=== PATIENT | male | born 1965 | race Caucasian/White ===

== ENCOUNTER 2020-08-27 20:24 | Observation (INO) ==
[2020-08-27 21:04] LABS: Urine Bilirubin Negative (NEGATIVE); Urine Blood 250 /ul (NEGATIVE); Urine Ketone Negative (NEGATIVE); Urine Nitrite Negative (NEGATIVE); Urine Protein Negative (NEGATIVE); Urine Specific Gravity 1.015 SP.GR. (1.005-1.030); Urine Urobilinogen Normal (NORMAL); Urine pH 6.5 pH (5.0-7.0)
[2020-08-27 21:22] LABS: Hematocrit 41.1 % (42.0-52.0); Hemoglobin 13.9 gm/dL (13.5-18.0); Mean Cell Volume 87.4 fl (78-100); Mean Corpuscular Hemoglobin 29.6 pg (27-31); Mean Corpuscular Hgb Conc 33.8 g/dl (32-36); Mean Platelet Volume 9.7 fl (8-11.3); Neutrophil # 7.7 K/mm3 (1.3-6.0); Neutrophil % 76.6 % (42-75.0); Platelet Count 232 K/mm3 (150-450); Red Cell Distribution Width 11.7 % (11.5-14.0); White Blood Count 10.1 K/mm3 (4.0-10.5)
--- NOTE | 2020-08-27 21:27 | ERNOTE ---
<Pilar Fields - Last Filed: 08/27/20 21:27> Abdominal HPI - Narrative Date of Service: 08/27/20 - General Chief Complaint: Abdominal Pain Time Seen by Provider: 08/27/20 21:05 Source: patient Exam Limitations: no limitations - Immun/Allergies/Home Medications Immunizatons: IMMUNIZATION HX Immunizations Up to Date Yes History of Influenza Vaccine No Hx Pneumococcal Vaccination No Allergies/Adverse Reactions: Allergies No Known Allergies Allergy (Unverified 08/27/20 20:55) Home Medications: HOME MEDICATIONS NK 08/27/20 [Last Taken Unknown] - Pain Score Pain Score #1 Pain Score: 5 Abdominal Pain Onset Location: RLQ Pain Radiation: flank - History of Present Illness Narrative: The patient is a 55 year old male who presents via POV for RLQ and flank pain which has been present since Thursday. There are associated symptoms of nausea and emesis x2 events. The patient reports pain to RLQ and flank, 5/10. There are no alleviating factors. There are aggravating factors of oral intake and activity. Previous treatments have included: none. The past medical history includes: kidney stones. The social history is negative. The patient has had no known ill contacts. Patient states he developed RLQ pain with radiation to right flank Thursday night with emesis on Thursday and again today. Patient reports normal bowel movement this am. Patient states pain has been intermittent since onset with varying levels of severity. Review of Systems - Review of Systems Constitutional: Present: chills, fatigue. Absent: fever EYE: Present: no symptoms reported ENT: Present: no symptoms reported. Absent: ear pain, nasal drainage, sore throat Respiratory: Present: no symptoms reported. Absent: shortness of breath, cough Cardiology: Present: no symptoms reported. Absent: chest pain Gastrointestinal/Abdominal: Present: nausea, vomiting, abdominal pain. Absent: diarrhea Genitourinary: Present: frequency. Absent: dysuria, decreased urinary output Musculoskeletal: Present: back pain Skin: Present: no symptoms reported. Absent: rash Neurological: Present: no symptoms reported. Absent: headache, dizziness/light- headedness Medical History (Last Reviewed 08/27/20 @ 21:21 by KARTHIK Mcdermott) No pertinent past medical history Surgical History: Surgical History (Last Reviewed 08/27/20 @ 21:21 by KARTHIK Mcdermott) No history of previous surgery Family History: Family History (Last Reviewed 08/27/20 @ 21:21 by KARTHIK Mcdermott) Other Family history non-contributory Physical Exam - Physical Exam General Appearance: Present: wd/wn, alert, mild distress Head Exam: Present: normal inspection, no evidence of injury Eye Exam: Normal inspection: bilateral Neck: Present: normal inspection Respiratory: Present: no respiratory distress, normal breath sounds, no accessor y muscle use, lungs clear Cardiovascular/Chest: Present: regular rate, rhythm, no murmur Gastrointestinal/Abdominal: Present: normal bowel sounds, nondistended, soft, no organomegaly, tenderness - RLQ, rebound. Absent: guarding Back Exam: Present: CVA tenderness (R). Absent: CVA tenderness (L) Extremity Exam: Present: no edema Neurological Exam: Present: alert, oriented, normal mood/affect, no motor/sensory deficits Skin Exam: Present: normal color, warm/dry Progress - Vital Signs Patient's Vital Signs:: I have reviewed the patient's vital signs. Vital Signs: Vital Signs 08/27/20 20:45 Temperature 37.0 C Pulse Rate 53 L Respiratory Rate 18 Blood Pressure 191/94 H O2 Sat by Pulse Oximetry 98 - Progress/Reassessment Chief Complaint: Abdominal Pain - Transfer of Care Physician Sign Out: Pilar Fields Receiving Physician: Francois Vidal Pending Results: CT/MRI results, Labs Expected Disposition: Discharge Departure Clinical Impression: Kidney stone on right side Pancreatitis Qualifiers: Chronicity: acute Pancreatitis type: idiopathic Acute pancreatitis complication: no infection or necrosis Qualified Code(s): K85.00 - Idiopathic acute pancreatitis without necrosis or infection - Departure Disposition: Home self-care Condition: Fair <Francois Vidal - Last Filed: 08/28/20 05:20> Abdominal HPI - Immun/Allergies/Home Medications Immunizatons: IMMUNIZATION HX Immunizations Up to Date Yes History of Influenza Vaccine No Hx Pneumococcal Vaccination No Medical History (Last Reviewed 08/27/20 @ 23:00 by Francois Vidal DO) No pertinent past medical history Surgical History: Surgical History (Last Reviewed 08/27/20 @ 23:00 by Francois Vidal DO) No history of previous surgery Family History: Family History (Last Reviewed 08/27/20 @ 23:00 by Francois Vidal DO) Other Family history non-contributory Physical Exam - Physical Exam General Appearance: Present: wd/wn, alert, no apparent distress Head Exam: Present: normal inspection, no evidence of injury Neck: Present: normal inspection, full range of motion Respiratory: Present: no respiratory distress, no accessory muscle use Gastrointestinal/Abdominal: Present: nondistended, soft, tenderness - Right lower quadrant. No epigastric or right upper quadrant tenderness to deep palpation. Absent: guarding, rebound Back Exam: Present: CVA tenderness (R) Extremity Exam: Present: no edema Neurological Exam: Present: alert, oriented, normal mood/affect, no motor/sensory deficits Skin Exam: Present: normal color, warm/dry Progress - Results and Orders Patient's Lab Results:: I have reviewed the patient's lab results. Results and Orders: Laboratory Tests 08/27/20 08/27/20 08/27/20 20:53 21:20 21:20 WBC 10.1 Hgb 13.9 Hct 41.1 L Plt Count 232 Neutrophils % 76.6 H Sodium 137 Potassium 3.8 Chloride 101 BUN 16 Creatinine 1.77 H Calcium 8.5 Total Bilirubin 0.8 AST 19 ALT 34 C-Reactive Prot, Quant 2.8 H Triglycerides Amylase 307 H Lipase 1162 H Urine Color Yellow Urine Appearance Clear Urine pH 6.5 Ur Specific [place] 1.015 Urine Ketones Negative Urine Blood 250 H Urine Nitrate Negative Ur Leukocyte Esterase Negative Urine RBC >50 H Urine Bacteria Trace Urine Culture Comments No culture indicated 08/27/20 21:20 WBC Hgb Hct Plt Count Neutrophils % Sodium Potassium Chloride BUN Creatinine Calcium Total Bilirubin AST ALT C-Reactive Prot, Quant Triglycerides 77 Amylase Lipase Urine Color Urine Appearance Urine pH Ur Specific [place] Urine Ketones Urine Blood Urine Nitrate Ur Leukocyte Esterase Urine RBC Urine Bacteria Urine Culture Comments - Vital Signs Patient's Vital Signs:: I have reviewed the patient's vital signs. Vital Signs: Vital Signs 08/27/20 20:45 Temperature 37.0 C Pulse Rate 53 L Respiratory Rate 18 Blood Pressure 191/94 H O2 Sat by Pulse Oximetry 98 - CT/Ultrasound CT/Ultrasound Narrative: CT abdomen pelvis stone protocol: 1. Bilateral kidney stones number 210 x 8 mm proximal right ureteral calculus with mild to moderate right hydronephrosis. 3. Mild diverticulosis coli without diverticulitis. 4. Mildly enlarged fatty liver. - Progress/Reassessment Progress Note-Subjective: 08/27/20 23:01 I spoke to the patient about risk factors for pancreatitis. Patient states he does not drink, he states he does not know his cholesterol or triglyceride status. Patient has no upper abdominal pain even to deep palpation 08/27/20 23:36 08/28/20 00:[address] Rodriguez about the patient his pancreatitis by laboratory work and having no primary care to follow-up if we were to try outpatient treatment. He agrees with observation admit. Francois Vidal DO, FAAFP
[2020-08-27 21:33] LABS: Urine Appearance Clear (CLEAR); Urine Color Yellow
[2020-08-27 21:34] LABS: Urine Bacteria TRACE; Urine RBC >50 /hpf (0-5); Urine WBC 0-5 /hpf (0-5)
[2020-08-27 21:37] LABS: Albumin * 4.1 gm/dl (3.4-5.0); Anion Gap 11.5 mmol/L (6.8-13.8); Bilirubin, Total 0.8 mg/dL (0.0-1.1); CRP 2.8 mg/dL (0.0-0.9); Ca. Corrected For Albumin 8.1 mg/dL (8.4-10.2); Calcium * 8.5 mg/dL (7.9-10.9); Carbon Dioxide 28.3 mmol/L (24-32.6); Potassium 3.8 mmol/L (3.4-4.6); Total Protein 7.1 gm/dL (6.2-8.2)
[2020-08-28] MEDS ORDERED: KETOROLAC TROMETHAMINE 30 MG/ML VIAL IV ONE (00:40)
[2020-08-28] MEDS ORDERED: NORMAL SALINE 1,000 ML IV ONE (00:51)
[2020-08-28] MEDS ORDERED: ONDANSETRON HCL/PF 2 MG/ML VIAL IV ONE (00:55)
--- NOTE | 2020-08-28 15:37 | HPDIS ---
Chief Complaint - Chief Complaint Date of Service: 08/28/20 Time of Service: 08:30 Chief Complaint: Right lower abdominal History of Present Illness: Toribio is a 55 yo male that presents to the [facility] [place] [facility] with right lower quadrant abdominal pain, similar to prior kidney stones. He noticed decreased urination and blood in the urine. Evaluation in the ER showed creatinine of 1.7 and blood in the urine. CT scan showed 10mm stone in right proximal ureter. Amylase and Lipase were also elevated. No epigastric pain present. He reports kidney stones in the past with the last one being about a year ago. Medical History (Last Reviewed 08/27/20 @ 23:00 by Francois Vidal DO) No pertinent past medical history Surgical History: Surgical History (Last Reviewed 08/27/20 @ 23:00 by Francois Vidal DO) No history of previous surgery Family History: Family History (Last Reviewed 08/27/20 @ 23:00 by Francois Vidal DO) Other Family history non-contributory Review Of Systems (GEN) - Review of Systems Generalized/Overall Review: Absent: Weakness, Chills, Fever EENTM: Present: No Symptoms Reported Respiratory: Absent: Cough, Shortness of Breath Cardiac: Absent: Chest Pain, Edema Abdominal: Present: Abdominal Pain. Absent: Nausea, Vomiting Genitourinary: Absent: Burning, Frequency Musculoskeletal: Present: No Symptoms Reported Neurological: Present: No Symptoms Reported Skin: Present: No Symptoms Reported Immunizations: IMMUNIZATION HX Immunizations Up to Date Yes History of Influenza Vaccine No Hx Pneumococcal Vaccination No Allergies/Adverse Reactions: Allergies Allergy/AdvReac Type Severity Reaction Status Date / Time No Known Allergies Allergy Unverified 08/27/20 20:55 Home Medications: HOME MEDICATIONS HYDROcodone/ACETAMINOPHEN [[place] 5-325] 1 each PO Q4H PRN #30 tablet 08/28/20 [Last Taken Unknown] Tamsulosin HCl [Flomax] 0.4 mg PO DAILY #30 cap.sr.24h 08/28/20 [Last Taken Unknown] Exam - Exam Vital Signs: Vital Signs - Last Taken Temp 36.9 C 08/28/20 07:10 Pulse 63 08/28/20 07:10 Resp 16 08/28/20 07:10 BP 153/83 H 08/28/20 07:10 Pulse Ox 95 08/28/20 07:10 Constitutional: Present: Alert, Oriented x3, Cooperative, No distress ENT Exam: Present: hearing grossly normal Eye Exam: bilateral eye: normal inspection Respiratory: Present: lungs clear, normal breath sounds Cardiovascular/Chest: Present: regular rate, rhythm, no murmur Peripheral Pulses: radial (R): 2+, radial (L): 2+ Abdomen: Present: Normal bowel sounds, soft, nontender, nondistended, no rebound tenderness, no hepatospenomegaly Skin Exam: Present: normal color, warm/dry, no cyanosis Lymphatic: Present: no adenopathy Appearance: Present: appropriate appearance, appropriate insight Eye contact: Present: cooperative, good eye contact, normal speech Thoughts: Present: normal thought pattern, no apparent hallucination Diagnostic Studies: Abnormal Lab Results 08/27/20 08/27/20 08/27/20 Range/Units 20:53 21:20 21:20 Hct 41.1 L (42.0-52.0) % Neutrophils % 76.6 H (42-75.0) % Lymphocytes % 12.1 L (20-51) % Monocytes % 10.4 H (0.0-9) % Neutrophils # 7.7 H (1.3-6.0) K/mm3 Lymphocytes # 1.22 L (1.5-3.5) k/mm3 Monocytes # 1.1 H (0.0-1.0) k/mm3 Creatinine 1.77 H (0.4-1.4) mg/dL Est GFR (Non-Af Amer) 43 L (60-130) mL/min Calcium Adj for Albumin 8.1 L (8.4-10.2) mg/dL C-Reactive Prot, Quant 2.8 H (0.0-0.9) mg/dL Amylase 307 H (25-115) U/L Lipase 1162 H (73-393) U/L Urine Blood 250 H (NEGATIVE) /ul Urine RBC >50 H (0-5) /hpf 08/28/20 Range/Units 06:09 Hct (42.0-52.0) % Neutrophils % (42-75.0) % Lymphocytes % (20-51) % Monocytes % (0.0-9) % Neutrophils # (1.3-6.0) K/mm3 Lymphocytes # (1.5-3.5) k/mm3 Monocytes # (0.0-1.0) k/mm3 Creatinine (0.4-1.4) mg/dL Est GFR (Non-Af Amer) (60-130) mL/min Calcium Adj for Albumin (8.4-10.2) mg/dL C-Reactive Prot, Quant (0.0-0.9) mg/dL Amylase (25-115) U/L Lipase 615 H (73-393) U/L Urine Blood (NEGATIVE) /ul Urine RBC (0-5) /hpf Laboratory Results WBC 10.1 K/mm3 (4.0-10.5) 08/27/20 21:20 RBC 4.70 M/mm3 (4.7-6.0) 08/27/20 21:20 Hgb 13.9 gm/dL (13.5-18.0) 08/27/20 21:20 Hct 41.1 % (42.0-52.0) L 08/27/20 21:20 MCV 87.4 fl (78-100) 08/27/20 21:20 MCH 29.6 pg (27-31) 08/27/20 21:20 MCHC 33.8 g/dl (32-36) 08/27/20 21:20 RDW 11.7 % (11.5-14.0) 08/27/20 21:20 Plt Count 232 K/mm3 (150-450) 08/27/20 21:20 MPV 9.7 fl (8-11.3) 08/27/20 21:20 Immature Gran % (Auto) 0.20 % (0.001-0.429) 08/27/20 21:20 Immature Gran # (Auto) 0.02 K/mm3 (0.000-0.0310) 08/27/20 21:20 Neutrophils % 76.6 % (42-75.0) H 08/27/20 21:20 Lymphocytes % 12.1 % (20-51) L 08/27/20 21:20 Monocytes % 10.4 % (0.0-9) H 08/27/20 21:20 Eosinophils % 0.4 % (0.0-3.0) 08/27/20 21:20 Basophils % 0.3 % (0.0-1.0) 08/27/20 21:20 Nucleated RBC % 0.0 k/mm3 (0-1) 08/27/20 21:20 Neutrophils # 7.7 K/mm3 (1.3-6.0) H 08/27/20 21:20 Lymphocytes # 1.22 k/mm3 (1.5-3.5) L 08/27/20 21:20 Monocytes # 1.1 k/mm3 (0.0-1.0) H 08/27/20 21:20 Eosinophils # 0.0 k/mm3 (0.0-0.7) 08/27/20 21:20 Absolute Basophils 0.0 k/mm3 (0.0-0.1) 08/27/20 21:20 Sodium 137 mmol/L (132-142) 08/27/20 21:20 Plasma Sodium 137 mmol/L (130-142) 08/27/20 21:20 Potassium 3.8 mmol/L (3.4-4.6) 08/27/20 21:20 Chloride 101 mmol/L (97-106) 08/27/20 21:20 Carbon Dioxide 28.3 mmol/L (24-32.6) 08/27/20 21:20 Anion Gap 11.5 mmol/L (6.8-13.8) 08/27/20 21:20 BUN 16 mg/dL (6-23) 08/27/20 21:20 Creatinine 1.77 mg/dL (0.4-1.4) H 08/27/20 21:20 Est GFR (Non-Af Amer) 43 mL/min (60-130) L 08/27/20 21:20 BUN/Creatinine Ratio 9.0 (9.0-21.6) 08/27/20 21:20 Random Glucose 105 mg/dL (70-110) 08/27/20 21:20 Calcium 8.5 mg/dL (7.9-10.9) 08/27/20 21:20 Calcium Adj for Albumin 8.1 mg/dL (8.4-10.2) L 08/27/20 21:20 Total Bilirubin 0.8 mg/dL (0.0-1.1) 08/27/20 21:20 AST 19 U/L (0-48) 08/27/20 21:20 ALT 34 U/L (19-67) 08/27/20 21:20 Alkaline Phosphatase 91 U/L (50-170) 08/27/20 21:20 C-Reactive Prot, Quant 2.8 mg/dL (0.0-0.9) H 08/27/20 21:20 Total Protein 7.1 gm/dL (6.2-8.2) 08/27/20 21:20 Albumin 4.1 gm/dl (3.4-5.0) 08/27/20 21:20 Triglycerides 77 mg/dL (30-200) 08/27/20 21:20 Amylase 307 U/L (25-115) H 08/27/20 21:20 Lipase 615 U/L (73-393) H 08/28/20 06:09 Urine Color Yellow 08/27/20 20:53 Urine Appearance Clear (CLEAR) 08/27/20 20:53 Urine pH 6.5 pH (5.0-7.0) 08/27/20 20:53 Ur Specific [place] 1.015 SP.GR. (1.005-1.030) 08/27/20 20:53 Urine Protein Negative mg/dL (NEGATIVE) 08/27/20 20:53 Urine Glucose (UA) Negative mg/dL (NEGATIVE) 08/27/20 20:53 Urine Ketones Negative mg/dL (NEGATIVE) 08/27/20 20:53 Urine Blood 250 /ul (NEGATIVE) H 08/27/20 20:53 Urine Nitrate Negative (NEGATIVE) 08/27/20 20:53 Urine Bilirubin Negative mg/dl (NEGATIVE) 08/27/20 20:53 Urine Urobilinogen Normal EU/dl (NORMAL) 08/27/20 20:53 Ur Leukocyte Esterase Negative /ul (NEGATIVE) 08/27/20 20:53 Urine RBC >50 /hpf (0-5) H 08/27/20 20:53 Urine WBC 0-5 /hpf (0-5) 08/27/20 20:53 Ur Epithelial Cells Trace /hpf (0-5) 08/27/20 20:53 Urine Bacteria Trace (NONE) 08/27/20 20:53 Urine Culture Comments No culture indicated 08/27/20 20:53 SARS-CoV-2 (PCR) Not detected (NotDetected) 08/28/20 01:05 Assessment/Plan - Narrative Narrative: Toribio is a 55 yo male with hx of kidney stones presenting with similar symptoms with right abdominal pain located in the lower quadrant. He has noticed blood in urine which was confirmed on UA. Imaging shows 10mm stone in right proximal ureter with mild renal swelling. Creatinine is 1.7, but unknown baseline. At this time he is pain free. Will advance diet and have him get up and move around this morning to see how he feels. Will discuss with urology his case as his stone is large enough that passing it on his own is not likely. P ancreatic enzymes have trended down. I suspect that this may be from adjacent inflammation in the right kidney. There was no evidence of pancreatitis on CT. Will admit to observation and potentially discharge later this afternoon. - Assessment/Plan (1) Kidney stone on right side Problem: Acute (2) Pancreatitis Problem: Acute Qualifiers: Chronicity: acute Pancreatitis type: unspecified pancreatitis type Acute pancreatitis complication: no infection or necrosis Qualified Code(s): K85.90 - Acute pancreatitis without necrosis or infection, unspecified (1) Kidney stone on right side Problem: Acute (2) Pancreatitis Problem: Acute Qualifiers: Chronicity: acute Pancreatitis type: idiopathic Acute pancreatitis complication: no infection or necrosis Qualified Code(s): K85.00 - Idiopathic acute pancreatitis without necrosis or infection Date of Discharge:: 08/28/20 Hospital Course: Toribio was admitted for right ureteral stone and pancreatic inflammation. He was made NPO, given fluids, and pain medications. This morning symptoms were resolved and pancreatic enzymes had trended down. He has a 10mm stone in his right proximal ureter that will likely need urological assistance. Discussed with Dr. Mitchell who will see him as outpatient tomorrow. Will discharge with flomax and hydrocodone for pain control. Suspect pancreatic inflammation was localized from nearby renal inflammation. Procedures Performed: none Results and Findings: Lab Pending Results 08/27/20 20:53: Urine Color Yellow, Urine Appearance Clear, Urine pH 6.5, Ur Specific [place] 1.015, Urine Protein Negative, Urine Glucose (UA) Negative, Urine Ketones Negative, Urine Blood 250 H, Urine Nitrate Negative, Urine Bilirubin Negative, Urine Urobilinogen Normal, Ur Leukocyte Esterase Negative, Urine RBC >50 H, Urine WBC 0-5, Ur Epithelial Cells Trace, Urine Bacteria Trace, Urine Culture Comments No culture indicated 08/27/20 21:20: WBC 10.1, RBC 4.70, Hgb 13.9, Hct 41.1 L, MCV 87.4, MCH 29.6, MCHC 33.8, RDW 11.7, Plt Count 232, MPV 9.7, Immature Gran % (Auto) 0.20, Im mature Gran # (Auto) 0.02, Neutrophils % 76.6 H, Lymphocytes % 12.1 L, Monocytes % 10.4 H, Eosinophils % 0.4, Basophils % 0.3, Nucleated RBC % 0.0, Neutrophils # 7.7 H, Lymphocytes # 1.22 L, Monocytes # 1.1 H, Eosinophils # 0.0, Absolute Basophils 0.0 08/27/20 21:20: Sodium 137, Plasma Sodium 137, Potassium 3.8, Chloride 101, Carbon Dioxide 28.3, Anion Gap 11.5, BUN 16, Creatinine 1.77 H, Est GFR (Non-Af Amer) 43 L, BUN/Creatinine Ratio 9.0, Random Glucose 105, Calcium 8.5, Calcium Adj for Albumin 8.1 L, Total Bilirubin 0.8, AST 19, ALT 34, Alkaline Phosphatase 91, C-Reactive Prot, Quant 2.8 H, Total Protein 7.1, Albumin 4.1, Amylase 307 H, Lipase 1162 H 08/27/20 21:20: Triglycerides 77 08/28/20 01:05: SARS-CoV-2 (PCR) Not detected 08/28/20 06:09: Lipase 615 H Discharge Location: Home Disposition: Home self-care Condition: Fair Discharge Activity: Activity as tolerated Discharge Diet: General/regular food Referrals: Stephen Cheema MD [Associate] - 08/29/[address] (Ok [address] Cheema to see him at [facility] tomorrow) Problem Oriented Discharge Instructions to Patient/Family: Kidney Stones, [id number] Prescriptions (Any new or edited meds): Tamsulosin HCl [Flomax] 0.4 mg PO DAILY #30 cap.sr.24h Transmission Status: Pending to [facility] HYDROcodone/ACETAMINOPHEN [[place] 5-325] 1 each PO Q4H PRN #30 tablet PRN Reason: kidney stone pain Transmission Status: Sent to [facility] Complete Home Medications List: Complete Home Medication List: HYDROcodone/ACETAMINOPHEN [[place] 5-325] 1 each PO Q4H PRN #30 tablet 08/28/20 Tamsulosin HCl [Flomax] 0.4 mg PO DAILY #30 cap.sr.24h 08/28/20 Forms: Patient Portal Registration
[2020-08-28 16:54] VITALS: BP 162/82
[2020-08-28] MEDS ORDERED: TAMSULOSIN HCL 0.4 MG CAP.SR.24H PO SCH (18:00)
== END 2020-08-28 16:40 | disposition home or self-care (01) ==
LOC: ER 20:24 → MS 20:24
PROVIDERS: ADMIT Family Medicine; ATTEND Family Medicine